=== PATIENT | male | born 1960 | race Caucasian/White ===

== ENCOUNTER 2017-10-10 15:28 | Emergency (ER) | payer BC, OTHER ==
[2017-10-10] MEDS: ONDANSETRON (ODT) 4 MG TAB ODT (17:49)
[2017-10-10] MEDS: HYDROCODONE/APAP (10/325) TAB PO (17:49)
== END 2017-10-10 19:06 | disposition home or self-care (01) ==
LOC: E/R 15:28
DX: M79.89 Other specified soft tissue disorders (principal); M54.5 Low back pain; E11.9 Type 2 diabetes mellitus without complications; I10 Essential (primary) hypertension; Z79.82 Long term (current) use of aspirin; Z85.46 Personal history of malignant neoplasm of prostate
CPT/HCPCS: 72131; 93971; 99284-25

== ENCOUNTER 2017-12-13 17:14 | Emergency (ER) | payer BC ==
[2017-12-13 21:15] LABS: ADD MAN DIFF? NO
[2017-12-13 21:17] LABS: BASOPHILS % 0.3 % (0.0-2.0); EOSINOPHILS # 0.2 10^3/ul (0.0-0.5); EOSINOPHILS % 2.4 % (0.0-7.0); HEMATOCRIT 35.1 % (42.0-52.0); HEMOGLOBIN 11.7 g/dl (14.0-18.0); LYMPHOCYTES # 2.5 10^3/ul (0.8-2.9); LYMPHOCYTES % 38.4 % (15.0-51.0); MEAN CORPUSCULAR HEMOGLOBIN 28.7 pg (29.0-33.0); MEAN CORPUSCULAR HGB CONC 33.3 g/dl (32.0-37.0); MEAN CORPUSCULAR VOLUME 86.2 fl (82.0-101.0); MEAN PLATELET VOLUME 9.3 fl (7.4-10.4); MONOCYTE # 0.7 10^3/ul (0.3-0.9); MONOCYTES % 10.1 % (0.0-11.0); NEUTROPHIL # 3.2 10^3/ul (1.6-7.5); NEUTROPHILS % 48.2 % (39.0-77.0); PLATELET COUNT 285 10^3/UL (140-415); RED BLOOD COUNT 4.07 10^6/ul (4.70-6.10); RED CELL DISTRIBUTION WIDTH 12.3 % (11.5-14.5)
[2017-12-13 21:17] LABS: WHITE BLOOD COUNT 6.6 10^3/ul (4.8-10.8)
[2017-12-13 21:35] LABS: ANION GAP 9 (5-13); BLOOD UREA NITROGEN 16 mg/dl (7-20); CALCIUM 10.3 mg/dl (8.4-10.2); CARBON DIOXIDE 31 mmol/L (21-31); CHLORIDE 102 mmol/L (97-110); CREATINE KINASE 148 IU/L (23-200); CREATININE 0.79 mg/dl (0.61-1.24); Estimated GFR > 60 mL/min (>60); GLUCOSE 115 mg/dl (70-220); INR 0.94; POTASSIUM 4.4 mmol/L (3.5-5.1); PROTIME 12.7 Sec (11.9-14.9); SODIUM 142 mmol/L (135-144)
[2017-12-13 21:37] LABS: PARTIAL THROMBOPLASTIN TIME 35.4 Sec (23.0-35.0)
[2017-12-13] MEDS: HYDROCODONE/APAP (10/325) TAB PO (22:21)
[2017-12-13] MEDS: ONDANSETRON (ODT) 4 MG TAB ODT (22:22)
== END 2017-12-13 22:47 | disposition home or self-care (01) ==
LOC: E/R 17:14
DX: M79.605 Pain in left leg (principal); I10 Essential (primary) hypertension; E11.9 Type 2 diabetes mellitus without complications; I87.2 Venous insufficiency (chronic) (peripheral); Z79.82 Long term (current) use of aspirin; Z85.46 Personal history of malignant neoplasm of prostate
CPT/HCPCS: 36415; 80048; 82550; 85025; 85610; 85730; 93971; 99284-25

== ENCOUNTER 2018-03-15 10:24 | Emergency (ER) | payer BC ==
[2018-03-15] MEDS: HYDROCODONE/APAP (10/325) TAB PO (11:23)
== END 2018-03-15 13:32 | disposition home or self-care (01) ==
LOC: FTE 10:24
DX: S89.92XA Unspecified injury of left lower leg, initial encounter (principal); I10 Essential (primary) hypertension; E11.9 Type 2 diabetes mellitus without complications; X58.XXXA Exposure to other specified factors, initial encounter; Y92.9 Unspecified place or not applicable; Z79.82 Long term (current) use of aspirin; Z85.46 Personal history of malignant neoplasm of prostate
CPT/HCPCS: 29505; 73562; 99283-25

== ENCOUNTER 2018-06-06 13:57 | Inpatient (IN) | payer BC ==
[2018-06-06 19:42] LABS: ADD MAN DIFF? NO
[2018-06-06 19:45] LABS: BASOPHILS % 0.3 % (0.0-2.0); EOSINOPHILS # 0.1 10^3/ul (0.0-0.5); HEMATOCRIT 34.6 % (42.0-52.0); HEMOGLOBIN 11.5 g/dl (14.0-18.0); LYMPHOCYTES # 1.7 10^3/ul (0.8-2.9); LYMPHOCYTES % 24.9 % (15.0-51.0); MEAN CORPUSCULAR HEMOGLOBIN 28.6 pg (29.0-33.0); MEAN CORPUSCULAR HGB CONC 33.2 g/dl (32.0-37.0); MEAN CORPUSCULAR VOLUME 86.1 fl (82.0-101.0); MEAN PLATELET VOLUME 9.5 fl (7.4-10.4); MONOCYTE # 0.6 10^3/ul (0.3-0.9); MONOCYTES % 9.4 % (0.0-11.0); NEUTROPHIL # 4.4 10^3/ul (1.6-7.5); PLATELET COUNT 344 10^3/UL (140-415); RED BLOOD COUNT 4.02 10^6/ul (4.70-6.10)
[2018-06-06 19:45] LABS: WHITE BLOOD COUNT 6.8 10^3/ul (4.8-10.8)
[2018-06-06] MEDS: SOD CHLORIDE 0.9% 1,000 ML IV (19:55)
[2018-06-06] MEDS: KETOROLAC 15 MG INJ IV (19:55)
[2018-06-06 20:03] LABS: ALANINE AMINOTRANSFERASE 22 IU/L (13-69); ALBUMIN/GLOBULIN RATIO 1.13; ALKALINE PHOSPHATASE 76 IU/L (42-121); ANION GAP 14 (5-13); ASPARTATE AMINO TRANSFERASE 25 IU/L (15-46); BILIRUBIN,INDIRECT 0.2 mg/dl (0-1.1); BILIRUBIN,TOTAL 0.2 mg/dl (0.2-1.3); BLOOD UREA NITROGEN 22 mg/dl (7-20); CALCIUM 10.7 mg/dl (8.4-10.2); CARBON DIOXIDE 29 mmol/L (21-31); CHLORIDE 99 mmol/L (97-110); CREATININE 1.27 mg/dl (0.61-1.24); Estimated GFR 58 mL/min (>60); GLUCOSE 156 mg/dl (70-220); LIPASE 145 U/L (23-300); POTASSIUM 4.6 mmol/L (3.5-5.1); SODIUM 142 mmol/L (135-144); TOTAL PROTEIN 9.4 g/dl (6.1-8.1)
[2018-06-06 20:38] LABS: ADD UMIC YES; UR ASCORBIC ACID NEGATIVE (NEGATIVE); UR BACTERIA FEW /HPF (NONE SEEN); UR BILIRUBIN (Dip) NEGATIVE (NEGATIVE); UR GLUCOSE (Dip) NEGATIVE (NEGATIVE); UR KETONES (Dip) NEGATIVE (NEGATIVE); UR LEUKOCYTE ESTERASE (Dip) NEGATIVE Leu/ul (NEGATIVE); UR NITRITE (Dip) NEGATIVE (NEGATIVE); UR RBC > 182 /HPF (0-5); UR SPECIFIC GRAVITY (Dip) 1.008 (1.003-1.030); UR TOTAL PROTEIN (Dip) 2+ mg/dl (NEGATIVE); UR UROBILINOGEN (Dip) NEGATIVE (NEGATIVE); UR WBC 0 /HPF (0-5)
[2018-06-06 20:39] LABS: UR CLARITY BLOODY (CLEAR); UR COLOR RED (YELLOW)
[2018-06-06 20:40] LABS: UR BLOOD (Dip) 3+ mg/dL (NEGATIVE)
[2018-06-06] MEDS ORDERED: HYDROmorphONE 1 MG/ML SYG (23:28)
[2018-06-07] MEDS: HYDROmorphONE 2 MG/ML SYG IV
[2018-06-07] MEDS: SODIUM CHLORIDE 0.9% 1L IRRIG IRR ×2 (00:01→08:06)
[2018-06-07] MEDS: morphine 2 MG INJ IV ×5 (08:09→21:20)
[2018-06-07] MEDS: SOD CHLORIDE 0.45% 1,000 ML IV ×2 (09:11→21:50)
[2018-06-07] MEDS: HYDROCODONE/APAP (5/325) TAB PO (09:11)
[2018-06-07] MEDS: CEFTRIAXONE 1 GM/50 ML (PMX) 50 ML IVPB (09:11)
[2018-06-07] MEDS: AMLODIPINE 5 MG TAB PO (09:11)
[2018-06-07] MEDS: hydrALAzine 20 MG INJ IV (11:04)
[2018-06-07 12:00] LABS: HEMATOCRIT 32.9 % (42.0-52.0)
[2018-06-07] MEDS: INSULIN ASPART [NOVOLOG] 3 ML PEN SC ×3 (12:27→21:53)
[2018-06-07] MEDS: MAGNESIUM HYDROXIDE 30ML CUP PO (20:44)
[2018-06-08] MEDS: SOD CHLORIDE 0.45% 1,000 ML IV ×2 (01:21→17:13)
[2018-06-08] MEDS: morphine 2 MG INJ IV ×5 (01:33→23:19)
[2018-06-08] MEDS: ACCU-CHEK XX (01:39)
[2018-06-08 06:53] LABS: ADD MAN DIFF? NO
[2018-06-08 06:56] LABS: WHITE BLOOD COUNT 8.8 10^3/ul (4.8-10.8)
[2018-06-08 06:56] LABS: BASOPHILS % 0.1 % (0.0-2.0); EOSINOPHILS # 0.1 10^3/ul (0.0-0.5); EOSINOPHILS % 0.7 % (0.0-7.0); HEMATOCRIT 30.9 % (42.0-52.0); HEMOGLOBIN 10.4 g/dl (14.0-18.0); LYMPHOCYTES % 11.1 % (15.0-51.0); MEAN CORPUSCULAR HEMOGLOBIN 28.8 pg (29.0-33.0); MEAN CORPUSCULAR HGB CONC 33.7 g/dl (32.0-37.0); MEAN CORPUSCULAR VOLUME 85.6 fl (82.0-101.0); MEAN PLATELET VOLUME 9.5 fl (7.4-10.4); MONOCYTE # 0.7 10^3/ul (0.3-0.9); MONOCYTES % 7.6 % (0.0-11.0); NEUTROPHIL # 7.1 10^3/ul (1.6-7.5); NEUTROPHILS % 80.2 % (39.0-77.0); PLATELET COUNT 300 10^3/UL (140-415); RED BLOOD COUNT 3.61 10^6/ul (4.70-6.10); RED CELL DISTRIBUTION WIDTH 12.1 % (11.5-14.5)
[2018-06-08 07:21] LABS: ANION GAP 11 (5-13); BLOOD UREA NITROGEN 35 mg/dl (7-20); CALCIUM 9.5 mg/dl (8.4-10.2); CARBON DIOXIDE 28 mmol/L (21-31); CHLORIDE 102 mmol/L (97-110); CREATININE 2.43 mg/dl (0.61-1.24); Estimated GFR 27 mL/min (>60); GLUCOSE 160 mg/dl (70-220); POTASSIUM 4.4 mmol/L (3.5-5.1); SODIUM 141 mmol/L (135-144)
[2018-06-08] MEDS: INSULIN ASPART [NOVOLOG] 3 ML PEN SC ×4 (08:07→20:54)
[2018-06-08] MEDS: CEFTRIAXONE 1 GM/50 ML (PMX) 50 ML IVPB (08:53)
[2018-06-08] MEDS: AMLODIPINE 5 MG TAB PO (08:53)
[2018-06-08 10:06] LABS: HEMOGLOBIN A1C 6.3 % (0-5.9)
[2018-06-08] MEDS: MAGNESIUM HYDROXIDE 30ML CUP PO (11:55)
[2018-06-08] MEDS: hydrALAzine 20 MG INJ IV (20:55)
[2018-06-09] MEDS: ACCU-CHEK XX (02:00)
[2018-06-09] MEDS: SOD CHLORIDE 0.45% 1,000 ML IV ×2 (03:20→16:52)
[2018-06-09] MEDS: ACETAMINOPHEN 325 MG TAB PO ×2 (04:55→10:40)
[2018-06-09 06:39] LABS: ADD MAN DIFF? NO
[2018-06-09 06:44] LABS: WHITE BLOOD COUNT 7.9 10^3/ul (4.8-10.8)
[2018-06-09 06:44] LABS: BASOPHILS % 0.3 % (0.0-2.0); EOSINOPHILS # 0.1 10^3/ul (0.0-0.5); HEMATOCRIT 30.6 % (42.0-52.0); HEMOGLOBIN 10.3 g/dl (14.0-18.0); LYMPHOCYTES % 13.1 % (15.0-51.0); MEAN CORPUSCULAR HEMOGLOBIN 28.5 pg (29.0-33.0); MEAN CORPUSCULAR HGB CONC 33.7 g/dl (32.0-37.0); MEAN CORPUSCULAR VOLUME 84.8 fl (82.0-101.0); MEAN PLATELET VOLUME 9.5 fl (7.4-10.4); MONOCYTE # 0.7 10^3/ul (0.3-0.9); MONOCYTES % 8.7 % (0.0-11.0); NEUTROPHIL # 6.1 10^3/ul (1.6-7.5); NEUTROPHILS % 76.4 % (39.0-77.0); PLATELET COUNT 308 10^3/UL (140-415); RED BLOOD COUNT 3.61 10^6/ul (4.70-6.10); RED CELL DISTRIBUTION WIDTH 11.9 % (11.5-14.5)
[2018-06-09 07:15] LABS: ANION GAP 12 (5-13); BLOOD UREA NITROGEN 25 mg/dl (7-20); CALCIUM 9.6 mg/dl (8.4-10.2); CARBON DIOXIDE 26 mmol/L (21-31); CHLORIDE 102 mmol/L (97-110); CREATININE 1.37 mg/dl (0.61-1.24); Estimated GFR 53 mL/min (>60); GLUCOSE 160 mg/dl (70-220); POTASSIUM 4.5 mmol/L (3.5-5.1); SODIUM 140 mmol/L (135-144)
[2018-06-09] MEDS: AMLODIPINE 5 MG TAB PO (08:05)
[2018-06-09] MEDS: CEFTRIAXONE 1 GM/50 ML (PMX) 50 ML IVPB (08:06)
[2018-06-09] MEDS: INSULIN ASPART [NOVOLOG] 3 ML PEN SC ×4 (08:10→20:38)
[2018-06-10] MEDS: morphine 2 MG INJ IV ×4 (01:34→20:27)
[2018-06-10] MEDS: ACCU-CHEK XX (02:54)
[2018-06-10] MEDS: SOD CHLORIDE 0.45% 1,000 ML IV ×2 (05:37→17:59)
[2018-06-10] MEDS: AMLODIPINE 5 MG TAB PO (08:11)
[2018-06-10] MEDS: CEFTRIAXONE 1 GM/50 ML (PMX) 50 ML IVPB (08:11)
[2018-06-10] MEDS: INSULIN ASPART [NOVOLOG] 3 ML PEN SC ×4 (08:15→20:34)
[2018-06-10] MEDS: ACETAMINOPHEN 325 MG TAB PO (10:02)
[2018-06-10] MEDS: hydrALAzine 20 MG INJ IV ×2 (12:27→19:52)
[2018-06-10] MEDS: INSULIN GLARGINE [LANTus] (100 UNITS/ML) SYG SC (13:48)
[2018-06-10] MEDS: HYDROCODONE/APAP (5/325) TAB PO (17:59)
[2018-06-11] MEDS: ACCU-CHEK XX (02:00)
[2018-06-11] MEDS: ACETAMINOPHEN 325 MG TAB PO (02:48)
[2018-06-11] MEDS: SOD CHLORIDE 0.45% 1,000 ML IV ×2 (07:31→12:40)
[2018-06-11] MEDS: AMLODIPINE 5 MG TAB PO (08:32)
[2018-06-11] MEDS: CEFTRIAXONE 1 GM/50 ML (PMX) 50 ML IVPB (08:33)
[2018-06-11] MEDS: INSULIN ASPART [NOVOLOG] 3 ML PEN SC ×4 (08:50→20:24)
[2018-06-11] MEDS: INSULIN GLARGINE [LANTus] (100 UNITS/ML) SYG SC (08:51)
[2018-06-12] MEDS: ACCU-CHEK XX (01:50)
[2018-06-12] MEDS: SOD CHLORIDE 0.45% 1,000 ML IV ×2 (06:07→21:30)
[2018-06-12 06:49] LABS: ADD MAN DIFF? NO
[2018-06-12 06:58] LABS: BASOPHILS % 0.4 % (0.0-2.0); EOSINOPHILS # 0.3 10^3/ul (0.0-0.5); EOSINOPHILS % 3.4 % (0.0-7.0); HEMATOCRIT 32.2 % (42.0-52.0); HEMOGLOBIN 10.8 g/dl (14.0-18.0); LYMPHOCYTES # 1.7 10^3/ul (0.8-2.9); LYMPHOCYTES % 22.8 % (15.0-51.0); MEAN CORPUSCULAR HEMOGLOBIN 28.4 pg (29.0-33.0); MEAN CORPUSCULAR HGB CONC 33.5 g/dl (32.0-37.0); MEAN CORPUSCULAR VOLUME 84.7 fl (82.0-101.0); MEAN PLATELET VOLUME 9.1 fl (7.4-10.4); MONOCYTE # 0.8 10^3/ul (0.3-0.9); NEUTROPHIL # 4.6 10^3/ul (1.6-7.5); PLATELET COUNT 393 10^3/UL (140-415); RED CELL DISTRIBUTION WIDTH 11.9 % (11.5-14.5)
[2018-06-12 06:58] LABS: WHITE BLOOD COUNT 7.5 10^3/ul (4.8-10.8)
[2018-06-12 07:17] LABS: ALANINE AMINOTRANSFERASE 21 IU/L (13-69); ALBUMIN 4.5 g/dl (3.3-4.9); ALBUMIN/GLOBULIN RATIO 1.04; ALKALINE PHOSPHATASE 66 IU/L (42-121); ANION GAP 12 (5-13); ASPARTATE AMINO TRANSFERASE 28 IU/L (15-46); BILIRUBIN,INDIRECT 0.3 mg/dl (0-1.1); BILIRUBIN,TOTAL 0.3 mg/dl (0.2-1.3); BLOOD UREA NITROGEN 18 mg/dl (7-20); CALCIUM 10.3 mg/dl (8.4-10.2); CARBON DIOXIDE 27 mmol/L (21-31); CHLORIDE 105 mmol/L (97-110); Estimated GFR 56 mL/min (>60); GLUCOSE 157 mg/dl (70-220); POTASSIUM 4.1 mmol/L (3.5-5.1); SODIUM 144 mmol/L (135-144); TOTAL PROTEIN 8.8 g/dl (6.1-8.1)
[2018-06-12 07:23] LABS: MAGNESIUM 2.3 mg/dl (1.7-2.5)
[2018-06-12] MEDS: INSULIN ASPART [NOVOLOG] 3 ML PEN SC ×4 (09:08→21:25)
[2018-06-12] MEDS: AMLODIPINE 5 MG TAB PO (09:17)
[2018-06-12] MEDS: INSULIN GLARGINE [LANTus] (100 UNITS/ML) SYG SC (09:28)
[2018-06-13] MEDS: ACCU-CHEK XX (02:00)
[2018-06-13] MEDS: INSULIN ASPART [NOVOLOG] 3 ML PEN SC ×4 (07:47→20:17)
[2018-06-13] MEDS: INSULIN GLARGINE [LANTus] (100 UNITS/ML) SYG SC (07:48)
[2018-06-13] MEDS: AMLODIPINE 5 MG TAB PO (08:31)
[2018-06-13] MEDS: SOD CHLORIDE 0.45% 1,000 ML IV (11:06)
[2018-06-14] MEDS: SOD CHLORIDE 0.45% 1,000 ML IV ×2 (00:41→14:17)
[2018-06-14] MEDS: ACETAMINOPHEN 325 MG TAB PO (00:41)
[2018-06-14] MEDS: ACCU-CHEK XX (02:00)
[2018-06-14 07:07] LABS: ADD MAN DIFF? NO
[2018-06-14 07:21] LABS: BASOPHILS % 0.3 % (0.0-2.0); EOSINOPHILS # 0.2 10^3/ul (0.0-0.5); EOSINOPHILS % 3.4 % (0.0-7.0); HEMATOCRIT 31.9 % (42.0-52.0); HEMOGLOBIN 10.9 g/dl (14.0-18.0); MEAN CORPUSCULAR HEMOGLOBIN 28.5 pg (29.0-33.0); MEAN CORPUSCULAR HGB CONC 34.2 g/dl (32.0-37.0); MEAN CORPUSCULAR VOLUME 83.3 fl (82.0-101.0); MEAN PLATELET VOLUME 9.3 fl (7.4-10.4); MONOCYTE # 0.7 10^3/ul (0.3-0.9); MONOCYTES % 10.2 % (0.0-11.0); NEUTROPHIL # 3.8 10^3/ul (1.6-7.5); NEUTROPHILS % 56.7 % (39.0-77.0); PLATELET COUNT 401 10^3/UL (140-415); RED BLOOD COUNT 3.83 10^6/ul (4.70-6.10); RED CELL DISTRIBUTION WIDTH 11.9 % (11.5-14.5)
[2018-06-14 07:21] LABS: WHITE BLOOD COUNT 6.8 10^3/ul (4.8-10.8)
[2018-06-14 07:45] LABS: ALANINE AMINOTRANSFERASE 27 IU/L (13-69); ALBUMIN 4.4 g/dl (3.3-4.9); ALBUMIN/GLOBULIN RATIO 1.04; ALKALINE PHOSPHATASE 69 IU/L (42-121); ANION GAP 11 (5-13); ASPARTATE AMINO TRANSFERASE 24 IU/L (15-46); BILIRUBIN,INDIRECT 0.3 mg/dl (0-1.1); BILIRUBIN,TOTAL 0.3 mg/dl (0.2-1.3); BLOOD UREA NITROGEN 20 mg/dl (7-20); CARBON DIOXIDE 26 mmol/L (21-31); CHLORIDE 105 mmol/L (97-110); CREATININE 1.28 mg/dl (0.61-1.24); Estimated GFR 57 mL/min (>60); GLUCOSE 146 mg/dl (70-220); POTASSIUM 4.6 mmol/L (3.5-5.1); SODIUM 142 mmol/L (135-144); TOTAL PROTEIN 8.6 g/dl (6.1-8.1)
[2018-06-14 07:46] LABS: MAGNESIUM 1.8 mg/dl (1.7-2.5)
[2018-06-14] MEDS: INSULIN ASPART [NOVOLOG] 3 ML PEN SC ×4 (08:14→20:26)
[2018-06-14] MEDS: AMLODIPINE 5 MG TAB PO (08:14)
[2018-06-14] MEDS: INSULIN GLARGINE [LANTus] (100 UNITS/ML) SYG SC (08:17)
[2018-06-15] MEDS: ACCU-CHEK XX (02:28)
[2018-06-15] MEDS: SOD CHLORIDE 0.45% 1,000 ML IV ×3 (04:07→20:57)
[2018-06-15] MEDS: AMLODIPINE 5 MG TAB PO (08:05)
[2018-06-15] MEDS: INSULIN ASPART [NOVOLOG] 3 ML PEN SC ×4 (11:19→21:00)
[2018-06-15] MEDS: INSULIN GLARGINE [LANTus] (100 UNITS/ML) SYG SC (12:14)
[2018-06-15] MEDS: BICALUTAMIDE 50 MG TAB PO (14:33)
[2018-06-15] MEDS: ACETAMINOPHEN 325 MG TAB PO (17:22)
[2018-06-16] MEDS: ACCU-CHEK XX (02:00)
[2018-06-16] MEDS: INSULIN ASPART [NOVOLOG] 3 ML PEN SC ×4 (07:59→20:36)
[2018-06-16] MEDS: AMLODIPINE 5 MG TAB PO (08:01)
[2018-06-16] MEDS: INSULIN GLARGINE [LANTus] (100 UNITS/ML) SYG SC (08:02)
[2018-06-16] MEDS: SOD CHLORIDE 0.45% 1,000 ML IV (10:36)
[2018-06-16] MEDS: BICALUTAMIDE 50 MG TAB PO (17:16)
[2018-06-16] MEDS: ACETAMINOPHEN 325 MG TAB PO (17:17)
[2018-06-17] MEDS: ACCU-CHEK XX (02:00)
[2018-06-17] MEDS: SOD CHLORIDE 0.45% 1,000 ML IV ×2 (02:07→15:59)
[2018-06-17 06:10] LABS: ADD MAN DIFF? NO
[2018-06-17 06:36] LABS: BASOPHILS % 0.3 % (0.0-2.0); EOSINOPHILS # 0.3 10^3/ul (0.0-0.5); EOSINOPHILS % 3.2 % (0.0-7.0); HEMATOCRIT 32.3 % (42.0-52.0); LYMPHOCYTES # 1.9 10^3/ul (0.8-2.9); LYMPHOCYTES % 25.2 % (15.0-51.0); MEAN CORPUSCULAR HEMOGLOBIN 28.6 pg (29.0-33.0); MEAN CORPUSCULAR HGB CONC 34.1 g/dl (32.0-37.0); MEAN CORPUSCULAR VOLUME 83.9 fl (82.0-101.0); MEAN PLATELET VOLUME 9.5 fl (7.4-10.4); MONOCYTE # 0.7 10^3/ul (0.3-0.9); MONOCYTES % 8.4 % (0.0-11.0); NEUTROPHIL # 4.8 10^3/ul (1.6-7.5); NEUTROPHILS % 62.5 % (39.0-77.0); PLATELET COUNT 397 10^3/UL (140-415); RED BLOOD COUNT 3.85 10^6/ul (4.70-6.10); RED CELL DISTRIBUTION WIDTH 11.7 % (11.5-14.5)
[2018-06-17 06:36] LABS: WHITE BLOOD COUNT 7.7 10^3/ul (4.8-10.8)
[2018-06-17 06:55] LABS: ANION GAP 12 (5-13); BLOOD UREA NITROGEN 21 mg/dl (7-20); CALCIUM 10.6 mg/dl (8.4-10.2); CARBON DIOXIDE 27 mmol/L (21-31); CHLORIDE 103 mmol/L (97-110); CREATININE 1.19 mg/dl (0.61-1.24); Estimated GFR > 60 mL/min (>60); GLUCOSE 131 mg/dl (70-220); POTASSIUM 4.1 mmol/L (3.5-5.1); SODIUM 142 mmol/L (135-144)
[2018-06-17] MEDS: INSULIN ASPART [NOVOLOG] 3 ML PEN SC ×4 (08:00→21:21)
[2018-06-17] MEDS: AMLODIPINE 5 MG TAB PO (08:24)
[2018-06-17] MEDS: INSULIN GLARGINE [LANTus] (100 UNITS/ML) SYG SC (08:26)
[2018-06-17] MEDS: metroNIDAZOLE 500 MG TAB PO ×2 (14:33→21:19)
[2018-06-17] MEDS: BICALUTAMIDE 50 MG TAB PO (15:00)
[2018-06-18] MEDS: ACCU-CHEK XX (02:00)
[2018-06-18] MEDS: metroNIDAZOLE 500 MG TAB PO ×3 (06:01→22:22)
[2018-06-18] MEDS: SOD CHLORIDE 0.45% 1,000 ML IV ×2 (06:06→19:55)
[2018-06-18] MEDS: INSULIN GLARGINE [LANTus] (100 UNITS/ML) SYG SC (08:26)
[2018-06-18] MEDS: AMLODIPINE 5 MG TAB PO (08:27)
[2018-06-18] MEDS: INSULIN ASPART [NOVOLOG] 3 ML PEN SC ×4 (11:28→21:00)
[2018-06-18] MEDS: BICALUTAMIDE 50 MG TAB PO (14:46)
[2018-06-18] MEDS: ACETAMINOPHEN 325 MG TAB PO (22:24)
[2018-06-19] MEDS: ACCU-CHEK XX (02:00)
[2018-06-19 06:15] LABS: ADD MAN DIFF? NO
[2018-06-19] MEDS: metroNIDAZOLE 500 MG TAB PO (06:17)
[2018-06-19 06:18] LABS: BASOPHILS % 0.6 % (0.0-2.0); EOSINOPHILS # 0.3 10^3/ul (0.0-0.5); EOSINOPHILS % 3.7 % (0.0-7.0); HEMATOCRIT 32.2 % (42.0-52.0); HEMOGLOBIN 11.1 g/dl (14.0-18.0); LYMPHOCYTES % 29.9 % (15.0-51.0); MEAN CORPUSCULAR HEMOGLOBIN 28.6 pg (29.0-33.0); MEAN CORPUSCULAR HGB CONC 34.5 g/dl (32.0-37.0); MEAN PLATELET VOLUME 9.3 fl (7.4-10.4); MONOCYTE # 0.6 10^3/ul (0.3-0.9); MONOCYTES % 8.9 % (0.0-11.0); NEUTROPHIL # 3.8 10^3/ul (1.6-7.5); NEUTROPHILS % 56.3 % (39.0-77.0); PLATELET COUNT 347 10^3/UL (140-415); RED BLOOD COUNT 3.88 10^6/ul (4.70-6.10); RED CELL DISTRIBUTION WIDTH 11.7 % (11.5-14.5)
[2018-06-19 06:18] LABS: WHITE BLOOD COUNT 6.7 10^3/ul (4.8-10.8)
[2018-06-19 06:45] LABS: ANION GAP 11 (5-13); BLOOD UREA NITROGEN 18 mg/dl (7-20); CALCIUM 9.9 mg/dl (8.4-10.2); CARBON DIOXIDE 27 mmol/L (21-31); CHLORIDE 106 mmol/L (97-110); CREATININE 1.11 mg/dl (0.61-1.24); Estimated GFR > 60 mL/min (>60); GLUCOSE 131 mg/dl (70-220); POTASSIUM 4.3 mmol/L (3.5-5.1); SODIUM 144 mmol/L (135-144)
[2018-06-19] MEDS: INSULIN GLARGINE [LANTus] (100 UNITS/ML) SYG SC (08:03)
[2018-06-19] MEDS: INSULIN ASPART [NOVOLOG] 3 ML PEN SC ×3 (08:03→17:42)
[2018-06-19] MEDS: AMLODIPINE 5 MG TAB PO (08:04)
[2018-06-19] MEDS: ACETAMINOPHEN 325 MG TAB PO (09:21)
[2018-06-19] MEDS: SOD CHLORIDE 0.45% 1,000 ML IV (09:25)
[2018-06-19] MEDS: BICALUTAMIDE 50 MG TAB PO (14:31)
== END 2018-06-19 18:40 | disposition home health service (06) | DRG 920 ==
LOC: E/R 13:57 → TEL 06-07 00:27 → PP2 06-15 03:00
PROC: 3E04305 Introduction of Other Antineoplastic into Central Vein, Percutaneous Approach (ICD-10-PCS; principal; 2018-06-15)
DX: T88.8XXA Other specified complications of surgical and medical care, not elsewhere classified, initial encounter (principal); C79.19 Secondary malignant neoplasm of other urinary organs; C79.51 Secondary malignant neoplasm of bone; N13.8 Other obstructive and reflux uropathy; N13.30 Unspecified hydronephrosis; N17.9 Acute kidney failure, unspecified; N39.0 Urinary tract infection, site not specified; R16.0 Hepatomegaly, not elsewhere classified; C61 Malignant neoplasm of prostate; K76.0 Fatty (change of) liver, not elsewhere classified; R31.9 Hematuria, unspecified; E78.00 Pure hypercholesterolemia, unspecified; E11.9 Type 2 diabetes mellitus without complications; I10 Essential (primary) hypertension; N13.9 Obstructive and reflux uropathy, unspecified; N32.89 Other specified disorders of bladder; K59.00 Constipation, unspecified; Y84.2 Radiological procedure and radiotherapy as the cause of abnormal reaction of the patient, or of later complication, without mention of misadventure at the time of the procedure; R19.7 Diarrhea, unspecified
CPT/HCPCS: 36415; 74018; 74176; 76775; 80048; 80053; 81001; 82962; 83036; 83690; 83735; 85014; 85018; 85025; 87075; 87086; 96374; 96375; 97162; 99285-25

== ENCOUNTER 2018-06-22 14:18 | Emergency (ER) | payer MEDICARE, BC ==
[2018-06-22 18:04] LABS: ADD UMIC YES; UR ASCORBIC ACID NEGATIVE (NEGATIVE); UR BACTERIA FEW /HPF (NONE SEEN); UR BILIRUBIN (Dip) NEGATIVE (NEGATIVE); UR BLOOD (Dip) 3+ mg/dL (NEGATIVE); UR CLARITY SLIGHTLY CLOUDY (CLEAR); UR COLOR RED (YELLOW); UR GLUCOSE (Dip) NEGATIVE (NEGATIVE); UR KETONES (Dip) NEGATIVE (NEGATIVE); UR LEUKOCYTE ESTERASE (Dip) TRACE Leu/ul (NEGATIVE); UR NITRITE (Dip) NEGATIVE (NEGATIVE); UR RBC 56 /HPF (0-5); UR SPECIFIC GRAVITY (Dip) 1.005 (1.003-1.030); UR TOTAL PROTEIN (Dip) 2+ mg/dl (NEGATIVE); UR UROBILINOGEN (Dip) NEGATIVE (NEGATIVE); UR WBC 5 /HPF (0-5)
[2018-06-22] MEDS: ACETAMINOPHEN 325 MG TAB PO (18:53)
== END 2018-06-22 20:28 | disposition home or self-care (01) ==
LOC: E/R 14:18
DX: N30.01 Acute cystitis with hematuria (principal); I10 Essential (primary) hypertension; E11.9 Type 2 diabetes mellitus without complications; Z79.82 Long term (current) use of aspirin; Z79.84 Long term (current) use of oral hypoglycemic drugs; Z85.46 Personal history of malignant neoplasm of prostate
CPT/HCPCS: 81001; 99283

== ENCOUNTER 2018-10-02 16:55 | Inpatient (IN) | payer OTHER, BC, MEDICARE ==
[2018-10-02 17:38] LABS: ADD MAN DIFF? NO
[2018-10-02 17:44] LABS: BASOPHILS % 0.2 % (0.0-2.0); EOSINOPHILS # 0.1 10^3/ul (0.0-0.5); HEMATOCRIT 29.9 % (42.0-52.0); HEMOGLOBIN 9.5 g/dl (14.0-18.0); LYMPHOCYTES # 1.4 10^3/ul (0.8-2.9); LYMPHOCYTES % 10.4 % (15.0-51.0); MEAN CORPUSCULAR HEMOGLOBIN 28.4 pg (29.0-33.0); MEAN CORPUSCULAR HGB CONC 31.8 g/dl (32.0-37.0); MEAN CORPUSCULAR VOLUME 89.3 fl (82.0-101.0); MEAN PLATELET VOLUME 8.9 fl (7.4-10.4); MONOCYTE # 0.9 10^3/ul (0.3-0.9); MONOCYTES % 6.5 % (0.0-11.0); NEUTROPHIL # 10.6 10^3/ul (1.6-7.5); NEUTROPHILS % 81.4 % (39.0-77.0); PLATELET COUNT 374 10^3/UL (140-415); RED BLOOD COUNT 3.35 10^6/ul (4.70-6.10); RED CELL DISTRIBUTION WIDTH 13.3 % (11.5-14.5)
[2018-10-02] MEDS: SOD CHLORIDE 0.9% 1,000 ML IV (17:45)
[2018-10-02 18:05] LABS: INR 0.96; PROTIME 12.9 Sec (11.9-14.9)
[2018-10-02 18:06] LABS: PARTIAL THROMBOPLASTIN TIME 36.5 Sec (23.0-35.0)
[2018-10-02 18:08] LABS: ALANINE AMINOTRANSFERASE 25 IU/L (13-69); ALBUMIN 4.3 g/dl (3.3-4.9); ALBUMIN/GLOBULIN RATIO 1.19; ALKALINE PHOSPHATASE 82 IU/L (42-121); ANION GAP 11 (5-13); ASPARTATE AMINO TRANSFERASE 20 IU/L (15-46); BILIRUBIN,INDIRECT 0.4 mg/dl (0-1.1); BILIRUBIN,TOTAL 0.4 mg/dl (0.2-1.3); BLOOD UREA NITROGEN 48 mg/dl (7-20); CALCIUM 7.3 mg/dl (8.4-10.2); CARBON DIOXIDE 30 mmol/L (21-31); CHLORIDE 100 mmol/L (97-110); Estimated GFR 14 mL/min (>60); GLUCOSE 111 mg/dl (70-220); LIPASE 310 U/L (23-300); POTASSIUM 4.9 mmol/L (3.5-5.1); SODIUM 141 mmol/L (135-144); TOTAL PROTEIN 7.9 g/dl (6.1-8.1)
[2018-10-02 18:14] LABS: ADD UMIC YES; UR ASCORBIC ACID NEGATIVE (NEGATIVE); UR BACTERIA FEW /HPF (NONE SEEN); UR BILIRUBIN (Dip) NEGATIVE (NEGATIVE); UR BLOOD (Dip) 3+ mg/dL (NEGATIVE); UR CLARITY CLEAR (CLEAR); UR COLOR YELLOW (YELLOW); UR GLUCOSE (Dip) NEGATIVE (NEGATIVE); UR KETONES (Dip) NEGATIVE (NEGATIVE); UR LEUKOCYTE ESTERASE (Dip) NEGATIVE Leu/ul (NEGATIVE); UR NITRITE (Dip) NEGATIVE (NEGATIVE); UR RBC 97 /HPF (0-5); UR SPECIFIC GRAVITY (Dip) 1.004 (1.003-1.030); UR TOTAL PROTEIN (Dip) 1+ mg/dl (NEGATIVE); UR UROBILINOGEN (Dip) NEGATIVE (NEGATIVE); UR WBC 3 /HPF (0-5)
[2018-10-02] MEDS: FAMOTIDINE 20 MG TAB PO (22:30)
[2018-10-02] MEDS ORDERED: DOCUSATE SODIUM 100 MG CAP PO (22:30)
[2018-10-02] MEDS: HEPARIN 5,000 UNIT/1 ML VIAL SC (22:30)
[2018-10-02] MEDS ORDERED: NACL 0.9% 3 ML SYG IV (22:30)
[2018-10-02] MEDS ORDERED: ONDANSETRON 4 MG TAB PO (22:30)
[2018-10-03 07:24] LABS: ADD MAN DIFF? NO
[2018-10-03 07:28] LABS: WHITE BLOOD COUNT 8.6 10^3/ul (4.8-10.8)
[2018-10-03 07:28] LABS: BASOPHILS % 0.2 % (0.0-2.0); EOSINOPHILS # 0.1 10^3/ul (0.0-0.5); EOSINOPHILS % 0.8 % (0.0-7.0); HEMATOCRIT 27.6 % (42.0-52.0); HEMOGLOBIN 8.9 g/dl (14.0-18.0); LYMPHOCYTES # 1.6 10^3/ul (0.8-2.9); MEAN CORPUSCULAR HEMOGLOBIN 29.1 pg (29.0-33.0); MEAN CORPUSCULAR HGB CONC 32.2 g/dl (32.0-37.0); MEAN CORPUSCULAR VOLUME 90.2 fl (82.0-101.0); MEAN PLATELET VOLUME 9.4 fl (7.4-10.4); MONOCYTE # 0.6 10^3/ul (0.3-0.9); MONOCYTES % 7.3 % (0.0-11.0); NEUTROPHIL # 6.2 10^3/ul (1.6-7.5); NEUTROPHILS % 72.2 % (39.0-77.0); PLATELET COUNT 321 10^3/UL (140-415); RED BLOOD COUNT 3.06 10^6/ul (4.70-6.10)
[2018-10-03 07:49] LABS: CREATINE KINASE 59 IU/L (23-200)
[2018-10-03 07:56] LABS: ANION GAP 9 (5-13); BLOOD UREA NITROGEN 43 mg/dl (7-20); CALCIUM 7.1 mg/dl (8.4-10.2); CARBON DIOXIDE 29 mmol/L (21-31); CHLORIDE 106 mmol/L (97-110); CREATININE 3.96 mg/dl (0.61-1.24); Estimated GFR 16 mL/min (>60); GLUCOSE 88 mg/dl (70-220); SODIUM 144 mmol/L (135-144)
[2018-10-03 08:01] LABS: CK INDEX 0.4; CK-MB 0.25 ng/ml (0.0-2.4); TROPONIN-I < 0.012 ng/ml (0.000-0.120)
[2018-10-03 08:14] LABS: HEMOGLOBIN A1C 5.6 % (0-5.9)
[2018-10-03] MEDS: predniSONE 5 MG TAB PO ×2 (08:31→20:50)
[2018-10-03] MEDS: HEPARIN 5,000 UNIT/1 ML VIAL SC ×2 (08:31→20:43)
[2018-10-03] MEDS: ATENOLOL 100 MG TAB PO (08:32)
[2018-10-03] MEDS: AMLODIPINE 10 MG TAB PO (08:32)
[2018-10-03 09:19] LABS: LIPASE 239 U/L (23-300)
[2018-10-03 09:52] LABS: IRON 50 ug/dl (35-150)
[2018-10-03 10:01] LABS: % IRON SATURATION 15 % SAT (22-52); TOTAL IRON BINDING CAPACITY 324 ug/dl (241-421)
[2018-10-03 12:23] LABS: CREATINE KINASE 64 IU/L (23-200)
[2018-10-03 12:36] LABS: CK INDEX 0.4; CK-MB 0.26 ng/ml (0.0-2.4); TROPONIN-I < 0.012 ng/ml (0.000-0.120)
[2018-10-03] MEDS: IOHEXOL 300MG/ML 150 ML BTL (13:21)
[2018-10-03] MEDS: LIDOCAINE 1%/EPI 30 ML INJ (13:21)
[2018-10-03] MEDS: LIDOCAINE 1% (MDV) 20 ML INJ (13:27)
[2018-10-03] MEDS: FENTAnyl 50 MCG/ML VIAL ×2 (14:26→16:17)
[2018-10-03] MEDS: MIDAZOLAM 1 MG/ML 2 ML INJ ×3 (14:27→15:24)
[2018-10-03] MEDS: ONDANSETRON 4 MG INJ IV (17:54)
[2018-10-03] MEDS: ACETAMINOPHEN 325 MG TAB PO (17:55)
[2018-10-03 18:21] LABS: PARATHYROID HORMONE INTACT 483.2 pg/ml (7.5-53.5)
[2018-10-03] MEDS: TAMSULOSIN (SR) 0.4 MG CAP PO (20:43)
[2018-10-03] MEDS: FAMOTIDINE 20 MG TAB PO (23:16)
[2018-10-04] MEDS: ACETAMINOPHEN 325 MG TAB PO ×2 (03:47→21:57)
[2018-10-04 06:53] LABS: ADD MAN DIFF? NO
[2018-10-04 06:54] LABS: WHITE BLOOD COUNT 7.4 10^3/ul (4.8-10.8)
[2018-10-04 06:54] LABS: BASOPHILS % 0.1 % (0.0-2.0); EOSINOPHILS % 0.3 % (0.0-7.0); HEMATOCRIT 29.5 % (42.0-52.0); HEMOGLOBIN 9.6 g/dl (14.0-18.0); LYMPHOCYTES # 1.3 10^3/ul (0.8-2.9); LYMPHOCYTES % 17.1 % (15.0-51.0); MEAN CORPUSCULAR HEMOGLOBIN 29.1 pg (29.0-33.0); MEAN CORPUSCULAR HGB CONC 32.5 g/dl (32.0-37.0); MEAN CORPUSCULAR VOLUME 89.4 fl (82.0-101.0); MEAN PLATELET VOLUME 9.2 fl (7.4-10.4); MONOCYTE # 0.5 10^3/ul (0.3-0.9); MONOCYTES % 6.7 % (0.0-11.0); NEUTROPHIL # 5.6 10^3/ul (1.6-7.5); NEUTROPHILS % 75.4 % (39.0-77.0); PLATELET COUNT 320 10^3/UL (140-415); RED CELL DISTRIBUTION WIDTH 12.4 % (11.5-14.5)
[2018-10-04 07:29] LABS: ALANINE AMINOTRANSFERASE 20 IU/L (13-69); ALBUMIN 3.6 g/dl (3.3-4.9); ALKALINE PHOSPHATASE 78 IU/L (42-121); ANION GAP 9 (5-13); ASPARTATE AMINO TRANSFERASE 17 IU/L (15-46); BILIRUBIN,INDIRECT 0.4 mg/dl (0-1.1); BILIRUBIN,TOTAL 0.4 mg/dl (0.2-1.3); BLOOD UREA NITROGEN 36 mg/dl (7-20); CALCIUM 7.8 mg/dl (8.4-10.2); CARBON DIOXIDE 28 mmol/L (21-31); CHLORIDE 107 mmol/L (97-110); CREATININE 3.36 mg/dl (0.61-1.24); Estimated GFR 19 mL/min (>60); GLUCOSE 118 mg/dl (70-220); MAGNESIUM 1.7 mg/dl (1.7-2.5); PHOSPHORUS 5.7 mg/dl (2.5-4.9); POTASSIUM 4.9 mmol/L (3.5-5.1); SODIUM 144 mmol/L (135-144); TOTAL PROTEIN 7.2 g/dl (6.1-8.1)
[2018-10-04] MEDS: predniSONE 5 MG TAB PO (09:09)
[2018-10-04] MEDS: ATENOLOL 100 MG TAB PO (09:09)
[2018-10-04] MEDS: AMLODIPINE 10 MG TAB PO (09:09)
[2018-10-04] MEDS: HEPARIN 5,000 UNIT/1 ML VIAL SC (09:29)
[2018-10-04] MEDS ORDERED: DEXTROSE 50% 50 ML SYRINGE IV ×2 (10:00)
[2018-10-04] MEDS ORDERED: GLUCOSE GEL 15 GRAM TUBE PO ×2 (10:00)
[2018-10-04] MEDS ORDERED: GLUCAGON 1 MG INJ IM (10:00)
[2018-10-04] MEDS ORDERED: GLUCOSE GEL 15 GRAM TUBE BUCCAL (10:00)
[2018-10-04] MEDS ORDERED: DOCUSATE SODIUM 100 MG CAP PO (11:00)
[2018-10-04] MEDS: INSULIN ASPART [NOVOLOG] 3 ML PEN SC ×3 (11:50→21:00)
[2018-10-04] MEDS: CALCIUM ACETATE 667 MG CAP PO ×2 (12:02→18:04)
[2018-10-04] MEDS: CALCITRIOL 0.25 MCG CAP PO (12:02)
[2018-10-04] MEDS: FUROSEMIDE 20 MG TAB PO (12:02)
[2018-10-04] MEDS: SOD FERRIC GLUC COMPLX 125 MG in SOD CHLORIDE 0.9% 100 ML IVPB (12:03)
[2018-10-04] MEDS: predniSONE 10 MG TAB PO (15:42)
[2018-10-04] MEDS: ABIRATERONE ACETATE 500 MG PO (15:42)
[2018-10-04] MEDS: TAMSULOSIN (SR) 0.4 MG CAP PO (21:57)
[2018-10-04] MEDS: FAMOTIDINE 20 MG TAB PO (21:57)
[2018-10-05 06:00] LABS: ADD MAN DIFF? NO
[2018-10-05 06:07] LABS: BASOPHILS % 0.1 % (0.0-2.0); EOSINOPHILS # 0.1 10^3/ul (0.0-0.5); EOSINOPHILS % 0.7 % (0.0-7.0); HEMATOCRIT 32.5 % (42.0-52.0); HEMOGLOBIN 10.7 g/dl (14.0-18.0); LYMPHOCYTES # 1.8 10^3/ul (0.8-2.9); LYMPHOCYTES % 24.8 % (15.0-51.0); MEAN CORPUSCULAR HEMOGLOBIN 28.8 pg (29.0-33.0); MEAN CORPUSCULAR HGB CONC 32.9 g/dl (32.0-37.0); MEAN CORPUSCULAR VOLUME 87.6 fl (82.0-101.0); MEAN PLATELET VOLUME 8.9 fl (7.4-10.4); MONOCYTE # 0.6 10^3/ul (0.3-0.9); MONOCYTES % 7.8 % (0.0-11.0); NEUTROPHIL # 4.9 10^3/ul (1.6-7.5); NEUTROPHILS % 65.9 % (39.0-77.0); PLATELET COUNT 347 10^3/UL (140-415); RED BLOOD COUNT 3.71 10^6/ul (4.70-6.10); RED CELL DISTRIBUTION WIDTH 12.2 % (11.5-14.5)
[2018-10-05 06:07] LABS: WHITE BLOOD COUNT 7.4 10^3/ul (4.8-10.8)
[2018-10-05 06:52] LABS: ALANINE AMINOTRANSFERASE 24 IU/L (13-69); ALBUMIN 4.2 g/dl (3.3-4.9); ALBUMIN/GLOBULIN RATIO 1.27; ALKALINE PHOSPHATASE 82 IU/L (42-121); ANION GAP 11 (5-13); ASPARTATE AMINO TRANSFERASE 13 IU/L (15-46); BILIRUBIN,INDIRECT 0.5 mg/dl (0-1.1); BILIRUBIN,TOTAL 0.5 mg/dl (0.2-1.3); BLOOD UREA NITROGEN 33 mg/dl (7-20); CALCIUM 9.2 mg/dl (8.4-10.2); CARBON DIOXIDE 27 mmol/L (21-31); CHLORIDE 105 mmol/L (97-110); CREATININE 3.02 mg/dl (0.61-1.24); Estimated GFR 21 mL/min (>60); GLUCOSE 110 mg/dl (70-220); POTASSIUM 4.4 mmol/L (3.5-5.1); SODIUM 143 mmol/L (135-144); TOTAL PROTEIN 7.5 g/dl (6.1-8.1)
[2018-10-05] MEDS: INSULIN ASPART [NOVOLOG] 3 ML PEN SC ×4 (08:00→20:48)
[2018-10-05] MEDS: AMLODIPINE 10 MG TAB PO (08:34)
[2018-10-05] MEDS: FUROSEMIDE 20 MG TAB PO (08:34)
[2018-10-05] MEDS: CALCIUM ACETATE 667 MG CAP PO ×3 (08:34→17:50)
[2018-10-05] MEDS: CALCITRIOL 0.25 MCG CAP PO (08:37)
[2018-10-05] MEDS: predniSONE 10 MG TAB PO ×2 (09:58→15:20)
[2018-10-05] MEDS: ABIRATERONE ACETATE 500 MG PO ×2 (09:59→15:20)
[2018-10-05] MEDS: ATENOLOL 100 MG TAB PO (09:59)
[2018-10-05] MEDS: BISACODYL (EC) 5 MG TAB PO (11:41)
[2018-10-05] MEDS: SOD FERRIC GLUC COMPLX 125 MG in SOD CHLORIDE 0.9% 100 ML IVPB (12:35)
[2018-10-05] MEDS: CIPROFLOXACIN 500 MG TAB PO (17:50)
[2018-10-05] MEDS ORDERED: CIPROFLOXACIN 250 MG TAB PO (18:00)
[2018-10-05] MEDS: FAMOTIDINE 20 MG TAB PO (20:42)
[2018-10-05] MEDS: TAMSULOSIN (SR) 0.4 MG CAP PO (20:42)
[2018-10-06 06:37] LABS: ANION GAP 13 (5-13); BLOOD UREA NITROGEN 36 mg/dl (7-20); CALCIUM 9.9 mg/dl (8.4-10.2); CARBON DIOXIDE 26 mmol/L (21-31); CHLORIDE 103 mmol/L (97-110); CREATININE 2.73 mg/dl (0.61-1.24); Estimated GFR 24 mL/min (>60); GLUCOSE 119 mg/dl (70-220); SODIUM 142 mmol/L (135-144)
[2018-10-06] MEDS: INSULIN ASPART [NOVOLOG] 3 ML PEN SC ×4 (07:57→22:32)
[2018-10-06] MEDS: CALCITRIOL 0.25 MCG CAP PO (08:18)
[2018-10-06] MEDS: CALCIUM ACETATE 667 MG CAP PO ×3 (08:18→17:59)
[2018-10-06] MEDS: FUROSEMIDE 20 MG TAB PO (08:18)
[2018-10-06] MEDS: AMLODIPINE 10 MG TAB PO (08:19)
[2018-10-06] MEDS: ATENOLOL 100 MG TAB PO (08:20)
[2018-10-06] MEDS: FLAVOXATE 100 MG PO ×2 (13:00→22:30)
[2018-10-06] MEDS: SOD FERRIC GLUC COMPLX 125 MG in SOD CHLORIDE 0.9% 100 ML IVPB (13:35)
[2018-10-06] MEDS: ABIRATERONE ACETATE 500 MG PO (15:51)
[2018-10-06] MEDS: predniSONE 10 MG TAB PO (15:51)
[2018-10-06] MEDS: CIPROFLOXACIN 500 MG TAB PO (17:59)
[2018-10-06] MEDS: TAMSULOSIN (SR) 0.4 MG CAP PO (22:32)
[2018-10-06] MEDS: FAMOTIDINE 20 MG TAB PO (22:32)
[2018-10-07 06:21] LABS: ANION GAP 12 (5-13); BLOOD UREA NITROGEN 41 mg/dl (7-20); CALCIUM 10.3 mg/dl (8.4-10.2); CARBON DIOXIDE 28 mmol/L (21-31); CHLORIDE 101 mmol/L (97-110); CREATININE 2.64 mg/dl (0.61-1.24); Estimated GFR 25 mL/min (>60); GLUCOSE 128 mg/dl (70-220); POTASSIUM 3.9 mmol/L (3.5-5.1); SODIUM 141 mmol/L (135-144)
[2018-10-07] MEDS: INSULIN ASPART [NOVOLOG] 3 ML PEN SC ×4 (08:00→21:32)
[2018-10-07] MEDS: CALCIUM ACETATE 667 MG CAP PO ×3 (08:06→17:23)
[2018-10-07] MEDS: CALCITRIOL 0.25 MCG CAP PO (08:06)
[2018-10-07] MEDS: ATENOLOL 100 MG TAB PO (08:06)
[2018-10-07] MEDS: AMLODIPINE 10 MG TAB PO (08:07)
[2018-10-07] MEDS: FLAVOXATE 100 MG PO ×3 (09:00→21:48)
[2018-10-07] MEDS: predniSONE 10 MG TAB PO (16:11)
[2018-10-07] MEDS: ZYTIGA PO (16:27)
[2018-10-07] MEDS: CIPROFLOXACIN 500 MG TAB PO (17:23)
[2018-10-07] MEDS: TAMSULOSIN (SR) 0.4 MG CAP PO (21:30)
[2018-10-07] MEDS: FAMOTIDINE 20 MG TAB PO (21:30)
[2018-10-08 05:16] LABS: ANION GAP 14 (5-13); BLOOD UREA NITROGEN 47 mg/dl (7-20); CALCIUM 10.8 mg/dl (8.4-10.2); CARBON DIOXIDE 26 mmol/L (21-31); CHLORIDE 99 mmol/L (97-110); CREATININE 2.71 mg/dl (0.61-1.24); Estimated GFR 24 mL/min (>60); GLUCOSE 154 mg/dl (70-220); POTASSIUM 3.7 mmol/L (3.5-5.1); SODIUM 139 mmol/L (135-144)
[2018-10-08] MEDS: INSULIN ASPART [NOVOLOG] 3 ML PEN SC ×4 (08:00→21:31)
[2018-10-08] MEDS: CALCIUM ACETATE 667 MG CAP PO ×3 (08:00→17:23)
[2018-10-08] MEDS: FLAVOXATE 100 MG PO ×3 (09:00→21:29)
[2018-10-08] MEDS: SOD CHLORIDE 0.9% 500 ML (09:20)
[2018-10-08] MEDS: LIDOCAINE 1% (MDV) 20 ML INJ (10:13)
[2018-10-08] MEDS: FENTAnyl 50 MCG/ML VIAL ×2 (10:14→11:00)
[2018-10-08] MEDS: IOHEXOL 300MG/ML 150 ML BTL (10:15)
[2018-10-08] MEDS: MIDAZOLAM 1 MG/ML 2 ML INJ (10:15)
[2018-10-08] MEDS: ATENOLOL 100 MG TAB PO (13:16)
[2018-10-08] MEDS: CALCITRIOL 0.25 MCG CAP PO (13:16)
[2018-10-08] MEDS: AMLODIPINE 10 MG TAB PO (13:16)
[2018-10-08] MEDS: predniSONE 10 MG TAB PO (17:23)
[2018-10-08] MEDS: CIPROFLOXACIN 500 MG TAB PO (17:23)
[2018-10-08] MEDS: ZYTIGA PO (17:25)
[2018-10-08] MEDS: TAMSULOSIN (SR) 0.4 MG CAP PO (21:29)
[2018-10-08] MEDS: ACETAMINOPHEN 325 MG TAB PO (21:29)
[2018-10-08] MEDS: FAMOTIDINE 20 MG TAB PO (21:32)
[2018-10-09 05:41] LABS: ADD MAN DIFF? NO
[2018-10-09 05:50] LABS: WHITE BLOOD COUNT 15.4 10^3/ul (4.8-10.8)
[2018-10-09 05:50] LABS: BASOPHILS % 0.1 % (0.0-2.0); EOSINOPHILS # 0.1 10^3/ul (0.0-0.5); EOSINOPHILS % 0.6 % (0.0-7.0); HEMATOCRIT 35.4 % (42.0-52.0); LYMPHOCYTES # 2.4 10^3/ul (0.8-2.9); LYMPHOCYTES % 15.7 % (15.0-51.0); MEAN CORPUSCULAR HEMOGLOBIN 28.8 pg (29.0-33.0); MEAN CORPUSCULAR HGB CONC 33.9 g/dl (32.0-37.0); MEAN CORPUSCULAR VOLUME 85.1 fl (82.0-101.0); MEAN PLATELET VOLUME 9.7 fl (7.4-10.4); MONOCYTES % 6.2 % (0.0-11.0); NEUTROPHIL # 11.8 10^3/ul (1.6-7.5); NEUTROPHILS % 76.8 % (39.0-77.0); PLATELET COUNT 460 10^3/UL (140-415); RED BLOOD COUNT 4.16 10^6/ul (4.70-6.10); RED CELL DISTRIBUTION WIDTH 12.3 % (11.5-14.5)
[2018-10-09 06:13] LABS: ALANINE AMINOTRANSFERASE 20 IU/L (13-69); ALBUMIN 4.7 g/dl (3.3-4.9); ALBUMIN/GLOBULIN RATIO 1.09; ALKALINE PHOSPHATASE 98 IU/L (42-121); ANION GAP 14 (5-13); ASPARTATE AMINO TRANSFERASE 15 IU/L (15-46); BILIRUBIN,INDIRECT 0.4 mg/dl (0-1.1); BILIRUBIN,TOTAL 0.4 mg/dl (0.2-1.3); BLOOD UREA NITROGEN 41 mg/dl (7-20); CALCIUM 10.4 mg/dl (8.4-10.2); CARBON DIOXIDE 25 mmol/L (21-31); CHLORIDE 99 mmol/L (97-110); CREATININE 2.29 mg/dl (0.61-1.24); Estimated GFR 29 mL/min (>60); GLUCOSE 163 mg/dl (70-220); POTASSIUM 3.3 mmol/L (3.5-5.1); SODIUM 138 mmol/L (135-144)
[2018-10-09] MEDS: FLAVOXATE 100 MG PO ×2 (08:37→12:33)
[2018-10-09] MEDS: CALCIUM ACETATE 667 MG CAP PO ×2 (08:37→12:33)
[2018-10-09] MEDS: ATENOLOL 100 MG TAB PO (08:38)
[2018-10-09] MEDS: AMLODIPINE 10 MG TAB PO (08:39)
[2018-10-09] MEDS: CALCITRIOL 0.25 MCG CAP PO (08:39)
[2018-10-09] MEDS: INSULIN ASPART [NOVOLOG] 3 ML PEN SC ×2 (08:42→12:00)
[2018-10-09] MEDS: ZYTIGA PO (15:18)
[2018-10-09] MEDS: predniSONE 10 MG TAB PO (15:20)
== END 2018-10-09 16:25 | disposition home health service (06) | DRG 694 ==
LOC: 2NE 10-05 06:50 → E/R 16:55 → TEL 10-03 20:45
PROC: 0T9130Z Drainage of Left Kidney with Drainage Device, Percutaneous Approach (ICD-10-PCS; principal; 2018-10-03)
PROC: 0T9030Z Drainage of Right Kidney with Drainage Device, Percutaneous Approach (ICD-10-PCS; 2018-10-03)
PROC: 0T763DZ Dilation of Right Ureter with Intraluminal Device, Percutaneous Approach (ICD-10-PCS; 2018-10-08)
PROC: 0T773DZ Dilation of Left Ureter with Intraluminal Device, Percutaneous Approach (ICD-10-PCS; 2018-10-08)
DX: N13.0 Hydronephrosis with ureteropelvic junction obstruction (principal); C79.51 Secondary malignant neoplasm of bone; N17.9 Acute kidney failure, unspecified; I12.9 Hypertensive chronic kidney disease with stage 1 through stage 4 chronic kidney disease, or unspecified chronic kidney disease; N18.9 Chronic kidney disease, unspecified; C61 Malignant neoplasm of prostate; R31.0 Gross hematuria; E11.9 Type 2 diabetes mellitus without complications; N32.0 Bladder-neck obstruction; K76.0 Fatty (change of) liver, not elsewhere classified; D63.1 Anemia in chronic kidney disease; N25.81 Secondary hyperparathyroidism of renal origin; K59.00 Constipation, unspecified
CPT/HCPCS: 36415; 71045; 74176; 74475; 74480; 76942; 80048; 80053; 81001; 82550; 82553; 82728; 82962; 83036; 83540; 83690; 83735; 83970; 84100; 84443; 84484; 85025; 85610; 85730; 87086; 93005; 93970; 97162; 99285-25

== ENCOUNTER 2018-10-11 16:31 | Emergency (ER) | payer OTHER, BC ==
[2018-10-11 19:05] LABS: ADD MAN DIFF? NO
[2018-10-11] MEDS: ACETAMINOPHEN 325 MG TAB PO (19:05)
[2018-10-11 19:09] LABS: WHITE BLOOD COUNT 12.8 10^3/ul (4.8-10.8)
[2018-10-11 19:09] LABS: BASOPHILS % 0.2 % (0.0-2.0); EOSINOPHILS # 0.3 10^3/ul (0.0-0.5); EOSINOPHILS % 2.1 % (0.0-7.0); HEMATOCRIT 32.9 % (42.0-52.0); HEMOGLOBIN 11.1 g/dl (14.0-18.0); LYMPHOCYTES # 2.2 10^3/ul (0.8-2.9); LYMPHOCYTES % 17.3 % (15.0-51.0); MEAN CORPUSCULAR HEMOGLOBIN 29.1 pg (29.0-33.0); MEAN CORPUSCULAR HGB CONC 33.7 g/dl (32.0-37.0); MEAN CORPUSCULAR VOLUME 86.1 fl (82.0-101.0); MEAN PLATELET VOLUME 9.5 fl (7.4-10.4); MONOCYTE # 1.2 10^3/ul (0.3-0.9); MONOCYTES % 9.4 % (0.0-11.0); NEUTROPHILS % 70.5 % (39.0-77.0); PLATELET COUNT 418 10^3/UL (140-415); RED BLOOD COUNT 3.82 10^6/ul (4.70-6.10); RED CELL DISTRIBUTION WIDTH 12.6 % (11.5-14.5)
[2018-10-11 19:20] LABS: ADD UMIC YES; UR ASCORBIC ACID NEGATIVE (NEGATIVE); UR BACTERIA FEW /HPF (NONE SEEN); UR BILIRUBIN (Dip) NEGATIVE (NEGATIVE); UR BLOOD (Dip) 3+ mg/dL (NEGATIVE); UR CLARITY CLEAR (CLEAR); UR COLOR STRAW (YELLOW); UR GLUCOSE (Dip) NEGATIVE (NEGATIVE); UR KETONES (Dip) NEGATIVE (NEGATIVE); UR LEUKOCYTE ESTERASE (Dip) TRACE Leu/ul (NEGATIVE); UR NITRITE (Dip) NEGATIVE (NEGATIVE); UR RBC 4 /HPF (0-5); UR SPECIFIC GRAVITY (Dip) 1.004 (1.003-1.030); UR TOTAL PROTEIN (Dip) 2+ mg/dl (NEGATIVE); UR UROBILINOGEN (Dip) NEGATIVE (NEGATIVE); UR WBC 3 /HPF (0-5)
[2018-10-11 19:28] LABS: ALANINE AMINOTRANSFERASE 21 IU/L (13-69); ALBUMIN 4.3 g/dl (3.3-4.9); ALBUMIN/GLOBULIN RATIO 1.02; ALKALINE PHOSPHATASE 106 IU/L (42-121); ANION GAP 14 (5-13); ASPARTATE AMINO TRANSFERASE 21 IU/L (15-46); BILIRUBIN,INDIRECT 0.4 mg/dl (0-1.1); BILIRUBIN,TOTAL 0.4 mg/dl (0.2-1.3); BLOOD UREA NITROGEN 32 mg/dl (7-20); CALCIUM 8.7 mg/dl (8.4-10.2); CARBON DIOXIDE 32 mmol/L (21-31); CHLORIDE 91 mmol/L (97-110); CREATININE 1.81 mg/dl (0.61-1.24); Estimated GFR 38 mL/min (>60); GLUCOSE 182 mg/dl (70-220); LIPASE 482 U/L (23-300); SODIUM 137 mmol/L (135-144); TOTAL PROTEIN 8.5 g/dl (6.1-8.1)
[2018-10-11 19:33] LABS: POTASSIUM 2.9 mmol/L (3.5-5.1)
[2018-10-11] MEDS: POTASSIUM CHLORIDE (SR) 20 MEQ TAB PO (19:49)
== END 2018-10-11 19:50 | disposition home or self-care (01) ==
LOC: E/R 16:31
DX: E87.6 Hypokalemia (principal); R39.9 Unspecified symptoms and signs involving the genitourinary system; I10 Essential (primary) hypertension; E11.9 Type 2 diabetes mellitus without complications; Z79.84 Long term (current) use of oral hypoglycemic drugs
CPT/HCPCS: 36415; 80053; 81001; 83690; 85025; 87086; 99283

== ENCOUNTER → 2018-10-17 | Outpatient (CLI) | payer OTHER, BC ==
[~2018-10-17] MED LIST: IOHEXOL 300MG/ML 30 ML BTL; LIDOCAINE 1% (MDV) 20 ML INJ
== END | disposition home or self-care (01) ==
LOC: RAD 12:14
DX: N13.2 Hydronephrosis with renal and ureteral calculous obstruction (principal)
CPT/HCPCS: 50389; 74475

== ENCOUNTER 2018-11-02 14:50 | Emergency (ER) | payer OTHER, BC ==
[2018-11-02 16:24] LABS: WHITE BLOOD COUNT 14.5 10^3/ul (4.8-10.8)
[2018-11-02 16:24] LABS: ADD MAN DIFF? NO; BASOPHILS % 0.2 % (0.0-2.0); EOSINOPHILS # 0.1 10^3/ul (0.0-0.5); EOSINOPHILS % 0.5 % (0.0-7.0); HEMATOCRIT 33.7 % (42.0-52.0); HEMOGLOBIN 10.9 g/dl (14.0-18.0); LYMPHOCYTES # 1.9 10^3/ul (0.8-2.9); LYMPHOCYTES % 12.8 % (15.0-51.0); MEAN CORPUSCULAR HEMOGLOBIN 29.5 pg (29.0-33.0); MEAN CORPUSCULAR HGB CONC 32.3 g/dl (32.0-37.0); MEAN CORPUSCULAR VOLUME 91.1 fl (82.0-101.0); MEAN PLATELET VOLUME 9.8 fl (7.4-10.4); MONOCYTE # 1.3 10^3/ul (0.3-0.9); MONOCYTES % 9.2 % (0.0-11.0); NEUTROPHIL # 11.1 10^3/ul (1.6-7.5); NEUTROPHILS % 76.7 % (39.0-77.0); PLATELET COUNT 283 10^3/UL (140-415); RED CELL DISTRIBUTION WIDTH 13.3 % (11.5-14.5)
[2018-11-02 16:30] LABS: ADD UMIC YES; UR ASCORBIC ACID NEGATIVE (NEGATIVE); UR BACTERIA FEW /HPF (NONE SEEN); UR BILIRUBIN (Dip) NEGATIVE (NEGATIVE); UR BLOOD (Dip) 2+ mg/dL (NEGATIVE); UR CLARITY SLIGHTLY CLOUDY (CLEAR); UR COLOR YELLOW (YELLOW); UR GLUCOSE (Dip) NEGATIVE (NEGATIVE); UR KETONES (Dip) NEGATIVE (NEGATIVE); UR LEUKOCYTE ESTERASE (Dip) 2+ Leu/ul (NEGATIVE); UR NITRITE (Dip) NEGATIVE (NEGATIVE); UR RBC 64 /HPF (0-5); UR SPECIFIC GRAVITY (Dip) 1.009 (1.003-1.030); UR TOTAL PROTEIN (Dip) 1+ mg/dl (NEGATIVE); UR UROBILINOGEN (Dip) NEGATIVE (NEGATIVE); UR WBC 116 /HPF (0-5)
[2018-11-02] MEDS: CEFTRIAXONE 1 GM/50 ML (PMX) 50 ML IVPB (16:33)
[2018-11-02] MEDS: ACETAMINOPHEN 500 MG TAB PO (16:34)
[2018-11-02] MEDS: SOD CHLORIDE 0.9% 500 ML IV (16:34)
[2018-11-02 16:42] LABS: ANION GAP 9 (5-13); BLOOD UREA NITROGEN 21 mg/dl (7-20); CALCIUM 9.6 mg/dl (8.4-10.2); CARBON DIOXIDE 26 mmol/L (21-31); CHLORIDE 104 mmol/L (97-110); CREATININE 1.37 mg/dl (0.61-1.24); Estimated GFR 53 mL/min (>60); GLUCOSE 104 mg/dl (70-220); POTASSIUM 3.7 mmol/L (3.5-5.1); SODIUM 139 mmol/L (135-144)
== END 2018-11-02 18:03 | disposition home or self-care (01) ==
LOC: E/R 14:50
DX: N30.01 Acute cystitis with hematuria (principal); I10 Essential (primary) hypertension; Z85.46 Personal history of malignant neoplasm of prostate; Z79.84 Long term (current) use of oral hypoglycemic drugs
CPT/HCPCS: 36415; 74176; 80048; 81001; 85025; 87040-91; 87086; 96374; 99285-25